=== PATIENT | female | born 1965 ===

== ENCOUNTER 2016-10-10 14:09 | Observation (INO) | payer MEDICAID ==
[2016-10-10 14:10] VITALS: BMI 22.2
[2016-10-10 14:32] VITALS: RESP 18; TEMP 98
--- NOTE | 2016-10-10 15:39 | ED PDOC ---
HPI: Abdomen Chief Complaint (Provider): Abdominal Pain History Per: Patient History/Exam Limitations: no limitations Onset/Duration Of Symptoms: Days Current Symptoms Are (Timing): Still Present Severity: Mild Location Of Pain/Discomfort: Diffuse Quality Of Discomfort: "Pain" Associated Symptoms: denies: Chills, Nausea, Vomiting, Diarrhea, Urinary Symptoms Exacerbating Factors: None Alleviating Factors: None <Kanika Jones - Last Filed: 10/10/16 15:37> <Jazzmine Escobar - Last Filed: 10/10/16 21:46> Time Seen by Provider: 10/10/16 14:56 Chief Complaint (Nursing): Abdominal Pain Additional Complaint(s): Patient is a 50 year old female who presents to ED for evaluation of abdominal pain with distention for 2 weeks. Patient denies fever, nausea, vomiting, diarrhea, constipation or urinary changes. Patient does admit to a history of chronic Percocet usage in the past but no longer taking them (Kanika Jones) Past Medical History Reviewed: Historical Data, Nursing Documentation, Vital Signs - Medical History PMH: Anxiety, Asthma, Back Problems (scoliosis, sciatica), Bipolar Disorder, Depression, Seizures Denies: Diabetes, Hepatitis, HIV, HTN, Sexually Transmitted Disease - Surgical History Surgical History: No Surg Hx - Family History Family History: States: Unknown Family Hx - Living Arrangements Living Arrangements: With Family - Immunization History Hx Tetanus Toxoid Vaccination: No Hx Influenza Vaccination: Yes Hx Pneumococcal Vaccination: Yes <Kanika Jones - Last Filed: 10/10/16 15:37> <Jazzmine Escobar - Last Filed: 10/10/16 21:46> Vital Signs: Last Vital Signs Temp 98 F 10/10/16 14:27 Pulse 74 10/10/16 14:27 Resp 18 10/10/16 14:27 BP 110/64 10/10/16 14:27 Pulse Ox 100 10/10/16 15:41 - Home Medications Home Medications: Ambulatory Orders Medication Instructions Recorded Albuterol 0.5% [Albuterol 0.5% 1 puff INH PRN PRN 07/16/16 Inhal Melony (2.5 mg/0.5 ml) UD] Aspirin [Ecotrin] 81 mg PO DAILY #30 tabec 07/20/16 Gabapentin [Neurontin] 300 mg PO TID #45 cap 07/20/16 Multimineral/Multivitamin 1 tab PO DAILY #30 tab 07/20/16 [Therapeutic-M Tab] Prazosin HCl [Minipress] 1 mg PO HS #15 cap 07/20/16 Baclofen [Lioresal] 10 mg PO DAILY 10/10/16 Calcium/Vitamin D [Oyster Shell 600 tab PO DAILY 10/10/16 Calcium/Vitamin D 500 mg-200 IU] Ibuprofen [Motrin Tab] 800 mg PO DAILY 10/10/16 Ketorolac Tromethamine [Toradol] 10 mg PO BID 10/10/16 Polyethylene Glycol 3350 [Miralax] 17 gr PO DAILY #15 packet 10/10/16 QUEtiapine [Seroquel] 15 mg PO HS 10/10/16 Sertraline [Zoloft] 50 mg PO DAILY 10/10/16 Sod Phos,M-B/Na Phos,Di-Ba [Fleet 230 ml RC QOTHERDAY #3 enema 10/10/16 Enema Extra] Topiramate [Topamax] 100 mg PO TID 10/10/16 clonazePAM [Klonopin] 1 mg PO TID 10/10/16 - Allergies Allergies/Adverse Reactions: Allergies Allergy/AdvReac Type Severity Reaction Status Date / Time No Known Allergies Allergy Unverified 02/12/13 06:48 Review of Systems ROS Statement: Except As Marked, All Systems Reviewed And Found Negative Constitutional: Negative for: Fever, Chills Gastrointestinal: Positive for: Abdominal Pain. Negative for: Nausea, Vomiting , Diarrhea Genitourinary Female: Negative for: Dysuria, Hematuria, Vaginal Discharge, Vaginal Bleeding Musculoskeletal: Negative for: Back Pain Neurological: Negative for: Weakness, Numbness <Kanika Jones F - Last Filed: 10/10/16 15:37> Physical Exam - Reviewed Nursing Documentation Reviewed: Yes Vital Signs Reviewed: Yes - Physical Exam Appears: Positive for: Non-toxic, No Acute Distress Skin: Positive for: Normal Color, Warm Eye Exam: Positive for: Normal appearance Neck: Positive for: Normal, Painless ROM Cardiovascular/Chest: Positive for: Regular Rate, Rhythm. Negative for: Murmur Respiratory: Positive for: Normal Breath Sounds. Negative for: Respiratory Distress Gastrointestinal/Abdominal: Positive for: Soft, Distended. Negative for: Tenderness, Guarding, Rebound Back: Positive for: Normal Inspection Extremity: Positive for: Normal ROM Neurologic/Psych: Positive for: Alert, Oriented. Negative for: Motor/Sensory Deficits <Kanika Jones - Last Filed: 10/10/16 15:37> - ECG O2 Sat by Pulse Oximetry: 100 (RA) Pulse Ox Interpretation: Normal <Kanika Jones - Last Filed: 10/10/16 15:37> - Laboratory Results Result Diagrams: 10/10/16 16:00 10/10/16 16:00 <Jazzmine Escobar - Last Filed: 10/10/16 21:46> Medical Decision Making <Kanika Jones - Last Filed: 10/10/16 15:37> <Jazzmine Escobar - Last Filed: 10/10/16 21:46> Medical Decision Making: Time: 1520 Initial impression: Abdominal pain with distention Initial plan: -- CT-abdomen -- EKG -- CMP -- Lipase -- Urine preg -- Urine dip -- CBC -- PT/PTT -- CXR -- ED obs -- U/A Scribe Attestation: Documented by Ariana Cruz acting as a scribe for Kanika Jones MD MD Scribe Attestation: All medical record entries made by the Scribe were at my direction and personally dictated by me. I have reviewed the chart and agree that the record accurately reflects my personal performance of the history, physical exam, medical decision making, and the department course for this patient. I have also personally directed, reviewed, and agree with the discharge instructions and disposition. (KarenMatta Najma) ED OBSERVATION Date of observation admission: 10/10/16 Time of observation admission: 15:30 <KarenKanika - Last Filed: 10/10/16 15:37> <Jazzmine Escobar - Last Filed: 10/10/16 21:46> - Observation admission statement Patient is being placed in observation because:: Need for additional diagnostics to rule-out acute or life threatening condition (Kanika Jones Najma) - Goals of Observation Goals of observation are:: Resolution of symptoms (Kanika Jones) Disposition <JonesKanika ramos - Last Filed: 10/10/16 15:37> - Patient ED Disposition Is Patient to be Admitted: No Doctor Will See Patient In The: Office Counseled Patient/Family Regarding: Diagnosis, Need For Followup, Rx Given - Disposition Disposition: Routine/Home Disposition Time: 21:46 - POA Present On Arrival: None <Jazzmine Escobar - Last Filed: 10/10/16 21:46> - Clinical Impression Clinical Impression: Constipation - Disposition Condition: STABLE
--- NOTE | 2016-10-10 16:06 | RAD ---
HISTORY: Abdominal pain. COMPARISON: 07/15/2016. TECHNIQUE: Chest PA and lateral FINDINGS: LUNGS: No active pulmonary disease. PLEURA: No significant pleural effusion identified. No pneumothorax apparent. CARDIOVASCULAR: Normal. OSSEOUS STRUCTURES: No significant abnormalities. VISUALIZED UPPER ABDOMEN: Normal. OTHER FINDINGS: None. IMPRESSION: No active disease. No significant interval change compared to the prior examination(s).
[2016-10-10 16:14] LABS: EOS # 0.3 K/uL (0.0-0.7); EOS % 5.7 % (0.0-4.0); HEMATOCRIT 35.2 % (34.0-47.0); LYMPH # 1.6 K/uL (1.0-4.3); LYMPH % 31.1 % (20.0-40.0); MEAN CELL VOLUME 92.4 fl (81.0-99.0); MEAN CORPUSCULAR HEMOGLOBIN 30.7 pg (27.0-31.0); MEAN CORPUSCULAR HGB CONC 33.2 g/dL (33.0-37.0); MEAN PLATELET VOLUME 9.3 fl (7.2-11.7); MONO # 0.3 K/uL (0.0-0.8); MONO % 4.9 % (0.0-10.0); NEUT % 58.3 % (50.0-75.0); RED CELL DISTRIBUTION WIDTH 13.4 % (11.5-14.5); WHITE BLOOD COUNT 5.1 K/uL (4.8-10.8)
[2016-10-10 16:23] LABS: RBC URINE 2 /hpf (0-3); URINE BACTERIA OCC (<OCC); URINE BILIRUBIN NEGATIVE (NEGATIVE); URINE BLOOD NEGATIVE (NEGATIVE); URINE COLOR YELLOW (YELLOW); URINE GLUCOSE (UA) NEG (Normal); URINE KETONE NEGATIVE (NEGATIVE); URINE LEUKOCYTE ESTERASE NEG Leu/uL (Negative); URINE PROTEIN NEGATIVE (NEGATIVE); URINE UROBILINOGEN 0.2-1.0 mg/dL (0.2-1.0); WBC URINE 1 /hpf (0-5)
[2016-10-10 16:24] LABS: ALB/GLOB RATIO 1.7 (1.0-2.1); ALKALINE PHOSPHATASE 75 U/L (38-126); ALT/SGPT 30 U/L (9-52); AST/SGOT 25 U/L (14-36); BILIRUBIN,TOTAL 0.1 mg/dl (0.2-1.3); BLOOD UREA NITROGEN 17 mg/dl (7-17); CALCIUM 9.3 mg/dL (8.4-10.2); CARBON DIOXIDE 23 mmol/L (22-30); CHLORIDE 108 mmol/L (98-107); GFR AFRICAN-AMERICAN > 60; GLUCOSE,RANDOM 80 mg/dL (65-105); LIPASE 115 U/L (23-300); SODIUM 143 mmol/l (132-148); TOTAL PROTEIN 6.8 G/DL (6.3-8.2)
[2016-10-10 16:37] LABS: PARTIAL THROMBOPLASTIN TIME 24.5 SECONDS (23.3-32.5)
[2016-10-10] MEDS ORDERED: Iohexol 240 (50 ml) PO ONE (18:02)
[2016-10-10] MEDS ORDERED: Iohexol 300 100 ML IJ ONE (19:37)
[2016-10-10] MEDS ORDERED: Sodium Chloride 0.9% 50 ML IV ONE (19:37)
--- NOTE | 2016-10-10 20:49 | CT ---
EXAM: CT Abdomen and Pelvis With Intravenous Contrast CLINICAL HISTORY: 50 years old, female; Signs and symptoms; Bloating; Prior surgery; Surgery date: 6+ months; Surgery type: Tubal ligation; Additional info: Abd pain/distension. Sent phy. Doc. With request TECHNIQUE: Axial computed tomography images of the abdomen and pelvis with intravenous contrast. This CT exam was performed using one or more of the following dose reduction techniques: automated exposure control, adjustment of the mA and/or kV according to patient size, and/or use of iterative reconstruction technique. Coronal and sagittal reformatted images were created and reviewed. CONTRAST: 90 mL of [id number] administered intravenously. EXAM DATE/TIME: 10/10/2016 3:30 PM COMPARISON: There are no prior studies for comparison. FINDINGS: Lower thorax: Heart size is normal. There is a small hiatal hernia. There is minimal atelectasis and scarring at the lung bases. ABDOMEN: Liver: unremarkable Gallbladder and bile ducts: unremarkable Pancreas: unremarkable Spleen: unremarkable Adrenals: Right adrenal is unremarkable. There is a small left adrenal nodule. 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 There is mild pelvocaliectasis. There is no ureterectasis. There is a single system on the right with an extrarenal pelvis, no ureterectasis. Stomach and bowel: Stomach is partially distended. Rotation is normal. There is no obstruction area terminal ileum is unremarkable. Appendix is unremarkable. There is moderately large amount of stool throughout the colon. Appendix: See above. PELVIS: Bladder: unremarkable Reproductive: Uterus and adnexal structures are unremarkable. ABDOMEN and PELVIS: Intraperitoneal space: There is no significant fluid.There is no free air. Bones/joints: There are no acute osseous abnormalities Soft tissues: unremarkable Vasculature: Vascular structures are unremarkable. Lymph nodes: There is shotty para-aortic adenopathy. IMPRESSION: Constipation; no acute solid visceral abnormality Additional findings as described above.
--- NOTE | 2016-10-10 21:50 | ED PDOC ---
- Laboratory Results Result Diagrams: 10/10/16 16:00 10/10/16 16:00 - ECG O2 Sat by Pulse Oximetry: 100 (RA) Medical Decision Making Medical Decision Making: CT scan abdomen significant only for constipation. Will d/c home with combination of enemas and fiber supplement Disposition Doctor Will See Patient In The: Office - Clinical Impression Clinical Impression: Constipation - POA Present On Arrival: None - Disposition Disposition: Routine/Home Disposition Time: 21:50 Condition: STABLE
[2016-10-10 21:52] VITALS: BP 113/71; PULSE 88; O2SAT 99
--- NOTE | 2016-10-10 22:18 | CARD ---
APPROVED REPORT EKG Measurement Heart [id number] <Conclusion> Normal sinus rhythm Nonspecific T wave abnormality Abnormal ECG
== END 2016-10-10 21:51 | disposition home or self-care (01) ==
LOC: H.ER 14:09 → H.EROBSV 15:31
PROVIDERS: ADMIT Emergency Medicine; ATTEND Emergency Medicine
DX: K59.09 Other constipation (principal); J45.909 Unspecified asthma, uncomplicated; M41.9 Scoliosis, unspecified; F31.9 Bipolar disorder, unspecified; R56.9 Unspecified convulsions; Z79.82 Long term (current) use of aspirin

== ENCOUNTER 2017-08-06 21:32 | Emergency (ER) | payer MEDICAID ==
[2017-08-06 21:32] VITALS: BMI 23.0
--- NOTE | 2017-08-06 22:11 | ED PDOC ---
HPI: Back Time Seen by Provider: 08/06/17 22:10 Chief Complaint (Provider): back pain History Per: Patient Additional Complaint(s): 51 year old with history of chronic low back pain presents to ED with acute muscle spasm to low back that started this evening. Patient states she took motrin and flexeril at home but this did not help. She denies radiation of pain and denies any bowel or bladder dysfunction. PMD: Dr. Omkar Bloom Past Medical History Reviewed: Historical Data, Nursing Documentation, Vital Signs - Medical History PMH: Anxiety, Asthma, Back Problems (scoliosis, sciatica), Bipolar Disorder, Depression, Post Traumatic Stress Disorder - Family History Family History: States: No Known Family Hx - Living Arrangements Living Arrangements: With Family - Social History Current smoker - smoking cessation education provided: No Alcohol: None Drugs: Denies - Home Medications Home Medications: Ambulatory Orders Medication Instructions Recorded Albuterol 0.5% [Albuterol 0.5% 1 puff INH PRN PRN 07/16/16 Inhal Melony (2.5 mg/0.5 ml) UD] Gabapentin [Neurontin] 300 mg PO TID #45 cap 07/20/16 Prazosin HCl [Minipress] 1 mg PO HS #15 cap 07/20/16 Topiramate [Topamax] 100 mg PO TID 10/10/16 clonazePAM [Klonopin] 1 mg PO TID 10/10/16 QUEtiapine [SEROquel] 50 mg PO HS 12/19/16 Ergocalciferol (Vitamin D2) 50,000 unit PO QWK 07/01/17 [Vitamin D2] Metaxalone [Skelaxin] 800 mg PO TID PRN #20 tablet 08/06/17 Naproxen [Naprosyn] 500 mg PO BID #20 tab 08/06/17 Prednisone 50 mg PO DAILY #5 tablet 08/06/17 - Allergies Allergies/Adverse Reactions: Allergies Allergy/AdvReac Type Severity Reaction Status Date / Time No Known Allergies Allergy Verified 08/04/17 16:59 Review of Systems ROS Statement: Except As Marked, All Systems Reviewed And Found Negative Musculoskeletal: Positive for: Back Pain (with muscle spasm) Physical Exam - Reviewed Nursing Documentation Reviewed: Yes Vital Signs Reviewed: Yes - Physical Exam Appears: Positive for: Well, Non-toxic, No Acute Distress Skin: Negative for: Rash Eye Exam: Positive for: Normal appearance Cardiovascular/Chest: Positive for: Regular Rate, Rhythm Respiratory: Positive for: Normal Breath Sounds Gastrointestinal/Abdominal: Positive for: Soft. Negative for: Tenderness Back: Positive for: Vertebral Tenderness (muscle spasm and tendernesss across lower lumbar region, unable to perform straight leg raise secondary to pain) Extremity: Positive for: Normal ROM Neurologic/Psych: Positive for: Alert, Oriented - ECG O2 Sat by Pulse Oximetry: 98 Pulse Ox Interpretation: Normal - Other Rad L/S Spine X-ray X-Ray: Interpreted by Me, Viewed By Me X-Ray Interpretation: no fx, no dis Medical Decision Making Medical Decision Makin51 year old with acute on chronic low back pain Plan: X-ray LS Spine IM toradol IM solumedrol PO valium PO tylenol Patient feels much better after meds were given. Initially when she came into ED, she could barely stand/walk due to pain. After meds patient was able to get up out of stretcher and walk to bathroom with steady gait. Pain is now 2/ 10. Will d/c with rx naprosyn, skelaxin and prednisone. Patient was referred to pain management. Disposition - Clinical Impression Clinical Impression: Back strain - Patient ED Disposition Is Patient to be Admitted: No Counseled Patient/Family Regarding: Studies Performed, Diagnosis, Need For Followup, Rx Given - Disposition Referrals: Curtis Bloom MD [Family Provider] - Royce Saenz MD [Staff Provider] - Disposition: Routine/Home Disposition Time: 23:14 Condition: IMPROVED Additional Instructions: TAKE RX MEDS DIRECTED. FOLLOW UP WITH PRIMARY CARE DOCTOR OR K [facility] PRINCIPAL SOON POSSIBLE. Prescriptions: Metaxalone [Skelaxin] 800 mg PO TID PRN #20 tablet PRN Reason: Muscle Pain Naproxen [Naprosyn] 500 mg PO BID #20 tab Prednisone 50 mg PO DAILY #5 tablet Instructions: Back Exercises, Low Back Pain in Adults, Muscle Strain, Sciatica Exercises
[2017-08-06 23:38] VITALS: BP 128/78; PULSE 78; RESP 18; TEMP 98; O2SAT 99
--- NOTE | 2017-08-07 09:54 | RAD ---
PROCEDURE: Radiographs of the Lumbar Spine. HISTORY: pain COMPARISON: No prior. FINDINGS: BONES: Normal alignment. No listhesis. No fracture. Right L4-5 and right L5-S1 asymmetrical mild-moderate facet hypertrophy/arthrosis DISC SPACES: Disc space height preserved. Schmorl's node indentations L5-S1, L4-5 and L2-3. OTHER FINDINGS: None. IMPRESSION: No fracture Right facet arthrosis
== END 2017-08-06 23:40 | disposition home or self-care (01) ==
LOC: H.ER 21:32
DX: S39.012A Strain of muscle, fascia and tendon of lower back, initial encounter (principal); Y92.89 Other specified places as the place of occurrence of the external cause; F31.9 Bipolar disorder, unspecified; F43.10 Post-traumatic stress disorder, unspecified; G89.29 Other chronic pain
CPT/HCPCS: 72100; 96372; 99283; J1885; J2930

== ENCOUNTER 2017-11-16 13:01 | Emergency (ER) | payer MEDICAID ==
[2017-11-16 13:01] VITALS: BMI 23.0
[2017-11-16 13:05] VITALS: RESP 18; O2SAT 100
[2017-11-16] MEDS ORDERED: Lidocaine 5% Patch TD STA (13:28)
--- NOTE | 2017-11-16 13:33 | ED PDOC ---
HPI: Back Time Seen by Provider: 11/16/17 13:09 Chief Complaint (Nursing): Back Pain History Per: Patient Additional Complaint(s): Pt. states earlier today she was lying on her stomach look at a cell phone. Reports after trying to get up she immediately developed neck pain radiating down the R arm and lower back pain radiating down the R leg. Pt. reports a long hx of a "pinched nerve in the lower back." States she is currently under the care of an orthopedist in [facility] and is scheduled to have physical therapy for her lower back. Pt. states she's never had neck problems before. Admits to self medicating with her mother's Percocet prior to arrival. Denies trauma, fever, chest pain, SOB, weakness. Past Medical History Reviewed: Historical Data, Nursing Documentation, Vital Signs Vital Signs: Last Vital Signs Temp 98.6 F 11/16/17 13:03 Pulse 73 11/16/17 13:03 Resp 18 11/16/17 13:03 BP 99/63 L 11/16/17 13:03 Pulse Ox 100 11/16/17 13:03 - Medical History PMH: Anxiety, Asthma, Back Problems (scoliosis, sciatica), Bipolar Disorder, Depression, Post Traumatic Stress Disorder, Seizures Denies: HTN - Family History Family History: States: No Known Family Hx - Immunization History Hx Tetanus Toxoid Vaccination: No Hx Influenza Vaccination: Yes Hx Pneumococcal Vaccination: No - Home Medications Home Medications: Ambulatory Orders Medication Instructions Recorded Albuterol 0.5% [Albuterol 0.5% 1 puff INH PRN PRN 07/16/16 Inhal Melony (2.5 mg/0.5 ml) UD] Gabapentin [Neurontin] 300 mg PO TID #45 cap 07/20/16 Prazosin HCl [Minipress] 1 mg PO HS #15 cap 07/20/16 Topiramate [Topamax] 100 mg PO TID 10/10/16 clonazePAM [Klonopin] 1 mg PO TID 10/10/16 QUEtiapine [SEROquel] 50 mg PO HS 12/19/16 Ergocalciferol (Vitamin D2) 50,000 unit PO QWK 07/01/17 [Vitamin D2] Metaxalone [Skelaxin] 800 mg PO TID PRN #20 tablet 08/06/17 Naproxen [Naprosyn] 500 mg PO BID #20 tab 08/06/17 Prednisone 50 mg PO DAILY #5 tablet 08/06/17 Lidocaine 5% [Lidoderm] 1 ea TD DAILY PRN #10 patch 11/16/17 Meloxicam [Mobic] 7.5 mg PO DAILY PRN #10 tab 11/16/17 - Allergies Allergies/Adverse Reactions: Allergies Allergy/AdvReac Type Severity Reaction Status Date / Time No Known Allergies Allergy Verified 11/16/17 13:03 Review of Systems ROS Statement: Except As Marked, All Systems Reviewed And Found Negative Musculoskeletal: Positive for: Back Pain Physical Exam - Physical Exam Appears: Positive for: Well, Non-toxic, In Acute Distress (mild painful distress ) Skin: Positive for: Normal Color, Warm. Negative for: Rash Eye Exam: Positive for: Normal appearance Cardiovascular/Chest: Positive for: Regular Rate, Rhythm, Chest Non Tender Respiratory: Positive for: CNT, Normal Breath Sounds Gastrointestinal/Abdominal: Positive for: Normal Exam, Soft. Negative for: Tenderness Back: Positive for: Normal Inspection, Muscle Spasm (paracervical and paralumbar ). Negative for: L CVA Tenderness, R CVA Tenderness, Vertebral Tenderness ( including cervical spine) Neurologic/Psych: Positive for: Alert, Oriented - ECG O2 Sat by Pulse Oximetry: 100 - Progress ED Course And Treament: Toradol 30mg IM, valium 10mg PO, lidoderm patch, cervical spine x-ray ordered. On re-evaluation, pt. reports moderate pain relief. Disposition - Clinical Impression Clinical Impression: Cervical radiculopathy, Chronic lower back pain - Patient ED Disposition Is Patient to be Admitted: No - Disposition Referrals: [facility] [Outside] Disposition: Routine/Home Disposition Time: 14:46 Condition: IMPROVED Additional Instructions: Follow up with your orthopedist for further evaluation. Return to ED immediately if symptoms worsen. Prescriptions: Lidocaine 5% [Lidoderm] 1 ea TD DAILY PRN #10 patch PRN Reason: pain Meloxicam [Mobic] 7.5 mg PO DAILY PRN #10 tab PRN Reason: pain Instructions: Low Back Pain (DC), Radiculopathy (DC) Forms: [employer] (Citizen Of [place]) Print Language: SLOVAK
[2017-11-16] MEDS ORDERED: Lidocaine 5% Patch TD ONE (13:38)
[2017-11-16 16:06] VITALS: BP 126/78; PULSE 78; TEMP 97
--- NOTE | 2017-11-16 17:14 | RAD ---
PROCEDURE: Cervical Spine Radiographs. HISTORY: Pain. COMPARISON: None. FINDINGS: BONES: Straightened curvature. No definite displaced fracture. No spondylolisthesis. Degenerative changes seen at the C1-2 articulation and are moderate throughout the mid to inferior facet joints. The odontoid process nevertheless is intact. DISC SPACES: Normal. SOFT TISSUES: Normal. No prevertebral soft tissue swelling. OTHER FINDINGS: None. IMPRESSION: Straightened curvature. No fracture or spondylolisthesis. Multilevel facet joint degenerative arthropathy.
== END 2017-11-16 16:06 | disposition home or self-care (01) ==
LOC: H.ER 13:01
DX: M54.12 Radiculopathy, cervical region (principal); M54.5 Low back pain; G89.29 Other chronic pain; Z86.59 Personal history of other mental and behavioral disorders; J45.909 Unspecified asthma, uncomplicated; M41.9 Scoliosis, unspecified
CPT/HCPCS: 72040; 96372; 99282; J1885

== ENCOUNTER 2017-12-09 08:20 | Emergency (ER) | payer MEDICAID ==
[2017-12-09 08:30] VITALS: TEMP 98.3; BMI 26.3
[2017-12-09] MEDS ORDERED: Sodium Chloride 0.9% 1,000 ML IV STA (08:44)
--- NOTE | 2017-12-09 08:47 | ED PDOC ---
HPI: Abdomen Time Seen by Provider: 12/09/17 08:28 History Per: Patient Onset/Duration Of Symptoms: Days (2) Current Symptoms Are (Timing): Still Present Severity: Moderate Pain Scale Rating Of: 3 Location Of Pain/Discomfort: Diffuse Quality Of Discomfort: Unable To Describe Associated Symptoms: Diarrhea. denies: Fever Exacerbating Factors: None Alleviating Factors: None Additional Complaint(s): Lower abd pain assoc with diarrhea. Pt notes black stool. Denies NV. Denies fever. Past Medical History Vital Signs: Last Vital Signs Temp 98.3 F 12/09/17 08:29 Pulse 80 12/09/17 08:29 Resp 18 12/09/17 08:46 BP 118/81 12/09/17 08:29 Pulse Ox 97 12/09/17 08:47 - Medical History PMH: Anxiety, Asthma, Back Problems (scoliosis, sciatica), Bipolar Disorder, Depression, Post Traumatic Stress Disorder, Seizures Denies: HTN - Family History Family History: States: Unknown Family Hx - Immunization History Hx Tetanus Toxoid Vaccination: No Hx Influenza Vaccination: Yes Hx Pneumococcal Vaccination: No - Home Medications Home Medications: Ambulatory Orders Medication Instructions Recorded Albuterol 0.5% [Albuterol 0.5% 1 puff INH PRN PRN 07/16/16 Inhal Melony (2.5 mg/0.5 ml) UD] Gabapentin [Neurontin] 300 mg PO TID #45 cap 07/20/16 Prazosin HCl [Minipress] 1 mg PO HS #15 cap 07/20/16 Topiramate [Topamax] 100 mg PO TID 10/10/16 clonazePAM [Klonopin] 1 mg PO TID 10/10/16 QUEtiapine [SEROquel] 50 mg PO HS 12/19/16 Ergocalciferol (Vitamin D2) 50,000 unit PO QWK 07/01/17 [Vitamin D2] Metaxalone [Skelaxin] 800 mg PO TID PRN #20 tablet 08/06/17 Naproxen [Naprosyn] 500 mg PO BID #20 tab 08/06/17 Prednisone 50 mg PO DAILY #5 tablet 08/06/17 Lidocaine 5% [Lidoderm] 1 ea TD DAILY PRN #10 patch 11/16/17 Meloxicam [Mobic] 7.5 mg PO DAILY PRN #10 tab 11/16/17 Dicyclomine [Dicyclomine HCl] 10 mg PO Q8 #10 cap 12/09/17 - Allergies Allergies/Adverse Reactions: Allergies Allergy/AdvReac Type Severity Reaction Status Date / Time No Known Allergies Allergy Verified 12/09/17 08:45 Review of Systems ROS Statement: Except As Marked, All Systems Reviewed And Found Negative Constitutional: Negative for: Fever Gastrointestinal: Positive for: Abdominal Pain, Diarrhea, Melena Physical Exam - Reviewed Nursing Documentation Reviewed: Yes Vital Signs Reviewed: Yes - Physical Exam Appears: Positive for: Non-toxic, No Acute Distress Head Exam: Positive for: ATRAUMATIC, NORMAL INSPECTION, NORMOCEPHALIC Skin: Positive for: Normal Color, Warm, DRY Eye Exam: Positive for: EOMI, Normal appearance, PERRL ENT: Positive for: Normal ENT Inspection Neck: Positive for: Normal, Painless ROM Cardiovascular/Chest: Positive for: Regular Rate, Rhythm Respiratory: Positive for: CNT, Normal Breath Sounds Gastrointestinal/Abdominal: Positive for: Soft, Tenderness (Lower quads bilat.) Back: Positive for: Normal Inspection Rectal: Negative for: Black Stool, Mass, Tenderness Extremity: Positive for: Normal ROM Neurologic/Psych: Positive for: Alert, Oriented - Laboratory Results Result Diagrams: 12/09/17 09:15 12/09/17 09:15 - ECG O2 Sat by Pulse Oximetry: 97 Disposition - Clinical Impression Clinical Impression: Abdominal pain - Patient ED Disposition Is Patient to be Admitted: No Counseled Patient/Family Regarding: Studies Performed, Diagnosis, Need For Followup, Rx Given - Disposition Referrals: [facility] [Outside] Disposition: Routine/Home Disposition Time: 12:09 Condition: FAIR Prescriptions: Dicyclomine [Dicyclomine HCl] 10 mg PO Q8 #10 cap Instructions: Colic
[2017-12-09 08:52] VITALS: RESP 18
[2017-12-09 09:40] LABS: ALB/GLOB RATIO 1.5 (1.0-2.1); ALBUMIN 4.2 g/dL (3.5-5.0); ALT/SGPT 26 U/L (9-52); AST/SGOT 21 U/L (14-36); BLOOD UREA NITROGEN 10 mg/dl (7-17); CALCIUM 9.3 mg/dL (8.4-10.2); GFR AFRICAN-AMERICAN > 60; GFR NON-AFRICAN AMERICAN > 60
[2017-12-09 09:45] LABS: BASO % 0.5 % (0.0-2.0); EOS # 0.2 K/uL (0.0-0.7); EOS % 2.6 % (0.0-4.0); HEMOGLOBIN 13.3 g/dL (12.0-16.0); LYMPH # 1.5 K/uL (1.0-4.3); LYMPH % 21.9 % (20.0-40.0); MEAN CELL VOLUME 90.5 fl (81.0-99.0); MEAN CORPUSCULAR HEMOGLOBIN 31.2 pg (27.0-31.0); MEAN CORPUSCULAR HGB CONC 34.5 g/dL (33.0-37.0); MEAN PLATELET VOLUME 8.8 fl (7.2-11.7); MONO # 0.3 K/uL (0.0-0.8); MONO % 4.7 % (0.0-10.0); NEUT # 4.9 K/uL (1.8-7.0); NEUT % 70.3 % (50.0-75.0); RBC 4.25 Mil/uL (3.80-5.20); RED CELL DISTRIBUTION WIDTH 14.8 % (11.5-14.5); WHITE BLOOD COUNT 6.9 K/uL (4.8-10.8)
[2017-12-09] MEDS ORDERED: Iodixanol 320 MG/ML 100 ML BOTTLE IV ONE (09:51)
--- NOTE | 2017-12-09 12:03 | CT ---
Date of service: 12/09/2017 PROCEDURE: CT Abdomen and Pelvis with contrast HISTORY: Abdominal pain COMPARISON: 10/10/2016. TECHNIQUE: CT scan of the abdomen and pelvis was performed after administration of intravenous contrast. Oral contrast was not administered. Coronal and sagittal reformatted images were obtained. Contrast dose: 99 cc Visipaque 320 Radiation dose: Total exam DLP = 704.51 mGy-cm. This CT exam was performed using one or more of the following dose reduction techniques: Automated exposure control, adjustment of the mA and/or kV according to patient size, and/or use of iterative reconstruction technique. FINDINGS: LOWER THORAX: The visualized lungs are clear. LIVER: Normal in size with diffuse fatty infiltration. No gross lesion or ductal dilatation. GALLBLADDER AND BILE DUCTS: No calcified gallstones. PANCREAS: Normal in size with homogeneous enhancement. No gross lesion or ductal dilatation. SPLEEN: Normal in size and appearance. ADRENALS: The right adrenal gland is normal in size without discrete nodule. There is mild thickening of the left adrenal gland without discrete nodule. KIDNEYS AND URETERS: The right kidney is normal in size with homogeneous enhancement. No hydronephrosis. 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 There is a single left ureteral. . No hydronephrosis. No solid mass. VASCULATURE: No aortic aneurysm. BOWEL: The small bowel loops are normal in caliber. There is moderate amount of stool in the colon. No bowel dilatation or obstruction. APPENDIX: Normal appendix. PERITONEUM: No free fluid. No free air. LYMPH NODES: There are shotty retroperitoneal lymph nodes, likely reactive. BLADDER: Grossly normal in appearance. REPRODUCTIVE: The uterus is normal in size. BONES: No acute fracture. Within normal limits for the patient's age. OTHER FINDINGS: None. IMPRESSION: No acute abdominal or pelvic abnormality. Constipation. No evidence for bowel obstruction.
[2017-12-09 12:48] VITALS: BP 120/66; PULSE 62; O2SAT 98
== END 2017-12-09 12:25 | disposition home or self-care (01) ==
LOC: H.ER 08:20
DX: R10.30 Lower abdominal pain, unspecified (principal); R19.7 Diarrhea, unspecified
CPT/HCPCS: 74177; 80053; 81025; 85025; 99284; J7030; Q9967

== ENCOUNTER 2018-09-18 12:26 | Emergency (ER) | payer MEDICAID, OTHER ==
[2018-09-18 12:26] VITALS: BMI 26.3
[2018-09-18] MEDS ORDERED: Sodium Chloride 0.9% 1,000 ML IV STA (12:47)
[2018-09-18] MEDS ORDERED: Atropine-Diphenoxylate 0.025-2.5 mg Tab PO ONE (13:08)
--- NOTE | 2018-09-18 13:16 | ED PDOC ---
HPI:Nausea, Vomiting, Diarrhea Time Seen by Provider: 09/18/18 12:39 Chief Complaint (Nursing): GI Problem Chief Complaint (Provider): GI Problem History Per: Patient History/Exam Limitations: no limitations Onset/Duration Of Symptoms: Days (x3 weeks) Additional Complaint(s): Patient is a 52 year old female with a past medical history of anxiety, seizures, and asthma, who presents to the emergency department complaining of diarrhea associated with weight loss and anxiety, ongoing for x3 weeks. She states she does not have a fever, vomiting or abdominal pain. Patient further denies any blood in stools. PMD: [place] Past Medical History Reviewed: Historical Data, Nursing Documentation, Vital Signs Vital Signs: Last Vital Signs Temp 99.3 F 09/18/18 12:30 Pulse 66 09/18/18 12:30 Resp 19 09/18/18 12:30 BP 103/69 09/18/18 12:30 Pulse Ox 97 09/18/18 12:30 - Medical History PMH: Anxiety, Asthma, Back Problems (scoliosis, sciatica), Bipolar Disorder, Depression, Post Traumatic Stress Disorder, Seizures Denies: HTN - Surgical History Surgical History: No Surg Hx - Family History Family History: States: Unknown Family Hx - Immunization History Hx Tetanus Toxoid Vaccination: No Hx Influenza Vaccination: Yes Hx Pneumococcal Vaccination: No - Home Medications Home Medications: Ambulatory Orders Medication Instructions Recorded Albuterol 0.5% [Albuterol 0.5% 1 puff INH PRN PRN 07/16/16 Inhal Melony (2.5 mg/0.5 ml) UD] Gabapentin [Neurontin] 300 mg PO TID #45 cap 07/20/16 Prazosin HCl [Minipress] 1 mg PO HS #15 cap 07/20/16 Topiramate [Topamax] 100 mg PO TID 10/10/16 clonazePAM [Klonopin] 1 mg PO TID 10/10/16 QUEtiapine [SEROquel] 50 mg PO HS 12/19/16 Ergocalciferol (Vitamin D2) 50,000 unit PO QWK 07/01/17 [Vitamin D2] Metaxalone [Skelaxin] 800 mg PO TID PRN #20 tablet 08/06/17 Naproxen [Naprosyn] 500 mg PO BID #20 tab 03/13/18 Prednisone 50 mg PO DAILY #5 tablet 08/06/17 Lidocaine 5% [Lidoderm] 1 ea TD DAILY PRN #10 patch 11/16/17 Meloxicam [Mobic] 7.5 mg PO DAILY PRN #10 tab 11/16/17 Dicyclomine [Dicyclomine HCl] 10 mg PO Q8 #10 cap 12/09/17 Albuterol 0.083% [Albuterol 0.083% 2.5 mg IH TID #50 neb 04/19/18 Inhal Melony (2.5 mg/3 ml) UD] Albuterol HFA [Ventolin HFA 90 2 puff IH Q6 #1 inhaler 04/19/18 mcg/actuation (8 g)] Ibuprofen [Motrin] 600 mg PO TID #30 tab 04/19/18 oxyCODONE/Acetaminophen [Percocet 1 tab PO Q6 04/19/18 5/325 mg Tab] predniSONE [predniSONE Tab] 2 tab PO DAILY #8 tab 04/19/18 - Allergies Allergies/Adverse Reactions: Allergies Allergy/AdvReac Type Severity Reaction Status Date / Time No Known Allergies Allergy Verified 09/18/18 12:31 Review of Systems ROS Statement: Except As Marked, All Systems Reviewed And Found Negative Constitutional: Positive for: Weight loss. Negative for: Fever Gastrointestinal: Positive for: Diarrhea. Negative for: Vomiting, Abdominal Pain, Melena, Hematochezia Physical Exam - Reviewed Nursing Documentation Reviewed: Yes Vital Signs Reviewed: Yes - Physical Exam Appears: Positive for: Non-toxic, No Acute Distress Head Exam: Positive for: ATRAUMATIC, NORMOCEPHALIC Skin: Positive for: Normal Color, Warm, Dry Eye Exam: Positive for: Normal appearance, EOMI, PERRL ENT: Positive for: Normal ENT Inspection Neck: Positive for: Normal, Painless ROM, Supple Cardiovascular/Chest: Positive for: Regular Rate, Rhythm. Negative for: Murmur Respiratory: Positive for: Normal Breath Sounds. Negative for: Respiratory Distress Gastrointestinal/Abdominal: Positive for: Normal Exam, Soft. Negative for: Tenderness Back: Positive for: Normal Inspection. Negative for: L CVA Tenderness, R CVA Te nderness, Vertebral Tenderness Extremity: Positive for: Normal ROM. Negative for: Pedal Edema, Deformity Neurological/Psych: Positive for: Alert, Oriented - Laboratory Results Result Diagrams: 09/18/18 13:00 09/18/18 13:00 - ECG O2 Sat by Pulse Oximetry: 97 (RA) Pulse Ox Interpretation: Normal Medical Decision Making Medical Decision Making: Time: 1247 Plan: IV fluids, labs and lomotil --Sodium Chloride 1,000 ml --Lomotil 0.025 - 2.5 mg --CBC with differential --CMP Scribe Attestation: Documented by Shravan Alonso, acting as a scribe Warren Lofton MD. Provider Scribe Attestation: All medical record entries made by the Scribe were at my direction and personally dictated by me. I have reviewed the chart and agree that the record accurately reflects my personal performance of the history, physical exam, medical decision making, and the department course for this patient. I have also personally directed, reviewed, and agree with the discharge instructions and disposition. Disposition - Clinical Impression Clinical Impression: Gastroenteritis, Anxiety - Patient ED Disposition Is Patient to be Admitted: Transfer of Care - Disposition Disposition: Transfer of Care Disposition Time: 16:11 Condition: FAIR Forms: [facility] (Chinese) Patient Signed Over To: Anthony Chance III ([place] crisis eval and reassessment)
[2018-09-18 13:17] LABS: BASO % 0.3 % (0.0-2.0); EOS # 0.2 K/uL (0.0-0.7); EOS % 2.6 % (0.0-4.0); HEMOGLOBIN 13.1 g/dL (12.0-16.0); LYMPH # 1.9 K/uL (1.0-4.3); LYMPH % 31.9 % (20.0-40.0); MEAN CELL VOLUME 92.8 fl (81.0-99.0); MEAN CORPUSCULAR HEMOGLOBIN 30.9 pg (27.0-31.0); MEAN CORPUSCULAR HGB CONC 33.3 g/dL (33.0-37.0); MEAN PLATELET VOLUME 8.9 fl (7.2-11.7); MONO # 0.3 K/uL (0.0-0.8); MONO % 4.3 % (0.0-10.0); NEUT # 3.6 K/uL (1.8-7.0); NEUT % 60.9 % (50.0-75.0); NRBC % 0.1 % (0.0-0.0); RBC 4.24 Mil/uL (3.80-5.20); RED CELL DISTRIBUTION WIDTH 13.6 % (11.5-14.5); WHITE BLOOD COUNT 5.9 K/uL (4.8-10.8)
[2018-09-18 13:24] LABS: ALB/GLOB RATIO 1.6 (1.0-2.1); ALBUMIN 4.4 g/dL (3.5-5.0); ALT/SGPT 21 U/L (9-52); AST/SGOT 20 U/L (14-36); BLOOD UREA NITROGEN 10 mg/dl (7-17); CALCIUM 9.5 mg/dL (8.4-10.2); GFR NON-AFRICAN AMERICAN > 60
[2018-09-18] MEDS ORDERED: Atropine-Diphenoxylate 0.025-2.5 mg Tab ONE (14:39)
[2018-09-18 17:02] VITALS: RESP 16
[2018-09-18 17:03] VITALS: BP 108/70; PULSE 72; TEMP 98.7; O2SAT 99
== END 2018-09-18 16:55 | disposition home or self-care (01) ==
LOC: H.ER 12:26
DX: K52.9 Noninfective gastroenteritis and colitis, unspecified (principal); F41.9 Anxiety disorder, unspecified; F43.10 Post-traumatic stress disorder, unspecified; R56.9 Unspecified convulsions
CPT/HCPCS: 80053; 85025; 99283; J7030